=== PATIENT | female | born 1950 | race Asian ===

== ENCOUNTER → 2017-01-30 | Outpatient (CLI) | payer BC ==
[~2017-01-30] MED LIST: ALLO100T PO; ASPI-781 PO; ATOR40TA68 PO; HYDR-906 PO; LOSA100T7 PO; LYR75 PO; LYRI100 PO; META800T99 PO; MULT-761 PO; OMEP20CA16 PO; OMEP40CA6 PO; TRIA1TAB PO; [UNRECOGNIZED DRUG - CODE] PO
--- NOTE | 2017-01-30 17:49 | RADRPT ---
PROCEDURE: XR Knees. CLINICAL INDICATION: Bilateral knee pain. TECHNIQUE: Total of six views. Frontal, oblique, and lateral views of both knees. COMPARISON: Left knee radiographs dated 07/28/2015. FINDINGS: There are bilateral total knee arthroplasties which appears satisfactory. There is no fracture, dis location, or loosening. The soft tissues are normal. There is no lytic or blastic lesion. IMPRESSION: 1. Satisfactory postoperative appearance of both knees. RPTAT: QQ .Julian Pepper MD, Date Time Electronically viewed and signed by .Julian Pepper MD, on 01/30/2017 17:48 .R/
--- NOTE | 2017-02-27 20:24 | HKNOTE ---
DATE OF SERVICE: 01/30/2017 MAIN COMPLAINT: Pain in both knees. The patient had a right total knee replacement performed by Dr. Diggs in 2012. The left knee was replaced by in 2014. She complains of pain in both knees. Worse on the right side. Pain has been present for about a month. No history of recent infections. No history of recent injuries. The pain is aggravated by walking and stair climbing. She does have a history of foot problems with her lower back. She has had a spinal fusion in 2014 and multiple trigger point injections since then. On a level surface, she can walk about 200 feet without stopping. She is not using a walking aid. She limps some of the time. She continues to participate in bowling. PHYSICAL EXAMINATION: VITAL SIGNS: Height 5 foot 4, weight 160 pounds. Blood pressure 115/60, temperature 98.8. EXTREMITIES: On examination of both knees, pain-free range of motion. All ligaments are stable. Marked tenderness over the pes bursa bilaterally. DIAGNOSIS: Pes bursitis both knees . MANAGEMENT: Under sterile conditions, she was given an injection of 1 cc of Kenalog and 5 cc 2 percent lidocaine into the pes bursa and she will be seen again as necessary. Dictated By: Lcuas Sow MD /guero/lg /Document#: [id number]
== END | disposition home or self-care (01) ==
LOC: HKI 14:09
DX: M71.562 Other bursitis, not elsewhere classified, left knee (principal); M71.561 Other bursitis, not elsewhere classified, right knee; Z96.653 Presence of artificial knee joint, bilateral; Z98.1 Arthrodesis status
CPT/HCPCS: 20610; 73562; G0463